=== PATIENT | female | born 1990 | race Caucasian/White ===

== ENCOUNTER 2017-06-28 23:18 | Emergency (ER) | payer SELFPAY ==
[2017-06-28 23:33] VITALS: BP 141/90; PULSE 109; TEMP 97.8; BMI 18.8
--- NOTE | 2017-06-28 23:36 | PDOC ---
History of Present Illness - General Chief Complaint: Tremors Stated Complaint: SHAKING, TINGLING IN BOTH HANDS Time Seen by Provider: 06/28/17 23:24 - History of Present Illness Initial Comments: This 27-year-old woman, lives alone, is accompanied by her aunt who drove her to the emergency room with a few hour history of tremulousness and bilateral hand numbness. Patient states that she had taken an Advil PM early this evening. At 9 PM, she awakened and was very tremulous. She became anxious and noted paresthesias in both hands. She states that she tried to control her breathing but symptoms continued. No history of panic attacks or anxiety although the patient has recently (5 days ago) started on Wellbutrin by her general healthcare practitioner. Patient states in the last few days, she had noted a slight increase in tremulousness but this was much increased after taking the Advil PM. She denies palpitations/rapid heartbeat/shortness of breath/chest pain. She has had no recent febrile illness or vomiting/diarrhea. No other new medication or supplement. Only ALLERGY is penicillin Past History - Past Medical History Allergies/Adverse Reactions: Allergies Allergy/AdvReac Type Severity Reaction Status Date / Time Penicillins Allergy Verified 06/28/17 23:24 Home Medications: Ambulatory Orders Bupropion HCl [Wellbutrin -] 75 mg PO DAILY 06/28/17 NK [No Known Home Medication] 06/28/17 COPD: No Other medical history: DENIES - Suicide/Smoking/Psychosocial Hx Smoking History: Current every day smoker Have you smoked in the past 12 months: Yes Number of Cigarettes Smoked Daily: 3 Information on smoking cessation initiated: Yes 'Breaking Loose' booklet given: 06/28/17 Hx Alcohol Use: No Drug/Substance Use Hx: No Substance Use Type: Alcohol Review of Systems - Review of Systems Able to Perform ROS?: Yes Comments:: 12 point review of systems is negative except for what is noted in the history of present illness *Physical Exam - Vital Signs Last Vital Signs Temp Pulse Resp BP Pulse Ox 97.8 F 109 H 16 141/90 98 06/28/17 23:29 06/28/17 23:29 06/28/17 23:29 06/28/17 23:29 06/28/17 23:29 - Physical Exam Comments: GENERAL: Adult female, alert and oriented 3, without evidence of tremulousness currently HEAD: Normal with no signs of trauma. EYES: PERRLA, EOMI, sclera anicteric, conjunctiva clear. ENT: Ears normal, nares patent, oropharynx clear without exudates. Dry mucous membranes. NECK: Normal range of motion, supple without lymphadenopathy, JVD, or masses. LUNGS: Breath sounds equal, clear to auscultation bilaterally. No wheezes, and no crackles. HEART:Regular rate and rhythm, normal S1 and S2 without murmur, rub or gallop. ABDOMEN:.normal bowel sounds No guarding,tenderness or rebound.No masses No distention. EXTREMITIES: Normal range of motion, no edema. No clubbing or cyanosis. No erythema, or tenderness. NEUROLOGICAL: Cranial nerves II through XII grossly intact. No abnormal nystagmus. No resting or intention tremor. Normal speech. No pronator drift Gait is normal; finger to nose normal bilaterally MUSCULOSKELETAL: Back non-tender to palpation, no CVA tenderness SKIN: Warm, Dry, normal turgor, no rashes or lesions noted. Medical Decision Making - Medical Decision Making This 27-year-old woman, recently started on bupropion, presents with episode of tremulousness at home. Although this had started after taking Advil PM, she had noted some milder tremulousness over the last few days. No other symptoms of palpitations/tachycardia/chest pain or shortness of breath present. Exam is normal. Clinical presentation most consistent with wellbutrin side effect. Although she may have had a paradoxical interaction of bupropion with diphenhydramine, levels of bupropion may be at a level that are causing her side effects after taking it for 5 days. In any case, patient given 0.25 mg of Xanax. Patient states that she has had this medication the past and has tolerated it well, usually falling asleep quickly. Patient has been strongly urged to call her healthcare practitioner in the morning to discuss her symptoms . She will return to the emergency room if symptoms are severe and persistent. *DC/Admit/Observation/Transfer Diagnosis at time of Disposition: Hyperventilation Adverse effects of medication Qualifiers: Encounter type: initial encounter Qualified Code(s): T88.7XXA - Unspecified adverse effect of drug or medicament, initial encounter - Discharge Dispostion Disposition: HOME Condition at time of disposition: Stable - Referrals Referrals: Dilcia Shafer NP [Primary Care Provider] - Call tomorrow - Patient Instructions Printed Discharge Instructions: DI for Hyperventilation Additional Instructions: Avoid taking other medications, especially diphenhydramine, while being medicated with bupropion Call your doctor tomorrow AM to be seen within the next 1-2 days Return to ER if you have severe, persistent symptoms - Post Discharge Activity
[2017-06-29] MEDS ORDERED: ALPRAZolam 0.25 MG TABLET PO ONE (00:28)
[2017-06-29] MEDS ORDERED: ALPRAZolam 0.25 MG TABLET ONE (00:30)
== END 2017-06-29 00:40 | disposition home or self-care (01) ==
LOC: FER 23:18
DX: T88.7XXA Unspecified adverse effect of drug or medicament, initial encounter (principal); R06.4 Hyperventilation; Z72.0 Tobacco use; T65.91XA Toxic effect of unspecified substance, accidental (unintentional), initial encounter; Y92.89 Other specified places as the place of occurrence of the external cause
CPT/HCPCS: 99281-25